=== PATIENT | male | born 1985 | race Caucasian/White ===

== ENCOUNTER 2020-09-07 08:23 | Emergency (ER) | payer OTHER ==
[2020-09-07 08:59] VITALS: BP 148/93; PULSE 109
--- NOTE | 2020-09-07 09:04 | CR ---
PROCEDURE INFORMATION: Exam: XR Chest, 1 View Exam date and time: 09/07/2020 8:54 AM Age: 34 years old Clinical indication: Chest pain; Type not specified TECHNIQUE: Imaging protocol: XR of the chest Views: 1 view. COMPARISON: No relevant prior studies available. FINDINGS: Lungs: The tip of the lung apices are partially excluded bilaterally. There is questionable minimal early bibasilar atelectasis versus pneumonia. However, no dense consolidation is seen. No kaleb pulmonary edema. Pleural space: Unremarkable. No pleural effusion. No pneumothorax. Heart/Mediastinum: Heart size is enlarged. Bones/joints: No acute osseous abnormality. IMPRESSION: 1. Questionable minimal early bibasilar atelectasis versus pneumonia, without dense consolidation or kaleb pulmonary edema. 2. Cardiomegaly.
[2020-09-07] MEDS ORDERED: GI Cocktail Oral Solution 30 ML PO ONE (09:10)
[2020-09-07 09:31] LABS: ANION GAP 12.9 mEq/L (7-13); CHLORIDE,CL 104 mmol/L (98-107); SODIUM,NA 141 mmol/L (136-145)
--- NOTE | 2020-09-07 09:43 | EDM.PDOC ---
ED HPI GENERAL MEDICAL PROBLEM - General Chief Complaint: Cardiovascular Problem Stated Complaint: CHEST PAINS Time Seen by Provider: 09/07/20 09:36 Source of Information: Reports: Patient, RN, RN Notes Reviewed History Limitations: Reports: No Limitations - History of Present Illness INITIAL COMMENTS - FREE TEXT/NARRATIVE: Patient presents to the ED via personal vehicle with complaints of chest pain. The patients reports a tightness to his left chest which started this past Thursday. He states this tightness has since progressed in severity and now radiates across his bilateral chest. He denies chest pain, palpitations, shortness of breath, fever, shaking chills, cough, sinus pain/pressure/drainage, or ear pain/pressure/drainage. He states he has been taking Motrin and Tylenol for this problem, but it has not alleviated his symptoms. He denies tobacco, alcohol, or recreational substance use. 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 - Related Data Allergies Allergy/AdvReac Type Severity Reaction Status Date / Time Penicillins Allergy Hives Verified 09/07/20 09:14 Home Meds: Home Meds . [No Known Home Meds] 10/17/16 [History] Past Medical History - Past Health History Medical/Surgical History: Denies Medical/Surgical History Social & Family History - Family History Family Medical History: Noncontributory - Tobacco Use Tobacco Use Status *Q: Never Tobacco User - Caffeine Use Caffeine Use: Reports: None - Recreational Drug Use Recreational Drug Use: No ED ROS GENERAL - Review of Systems Review Of Systems: Comprehensive ROS is negative, except as noted in HPI. ED EXAM, GENERAL - Physical Exam Exam: See Below Exam Limited By: No Limitations General Appearance: Alert, WD/WN, No Apparent Distress Eye Exam: Bilateral Eye: EOMI, Normal Inspection, PERRL Ears: Normal External Exam, Normal Canal, Hearing Grossly Normal, Normal TMs Ear Exam: Bilateral Ear: Auricle Normal, Canal Normal, TM normal Nose: Normal Inspection, Normal Mucosa, No Blood, Clear Rhinorrhea Throat/Mouth: Normal Lips, Normal Teeth, Normal Voice, No Airway Compromise. No: Normal Oropharynx (Dry mucous membranes) Head: Atraumatic, Normocephalic Neck: Normal Inspection, Supple, Non-Tender, Full Range of Motion Respiratory/Chest: Lungs Clear, Normal Breath Sounds, No Accessory Muscle Use, Chest Non-Tender. No: Crackles, Rales, Rhonchi, Wheezing, Stridor Cardiovascular: Normal Peripheral Pulses, Regular Rate, Rhythm, No Edema, No Gallop, No Murmur, No Rub Peripheral Pulses: 1+: Posterior Tibial (L), Posterior Tibial (R), 2+: Radial (L), Radial (R) GI/Abdominal: Normal Bowel Sounds, Soft, Non-Tender, No Distention, No Mass, Pelvis Stable Back Exam: Normal Inspection, Full Range of Motion Extremities: Normal Inspection, Normal Range of Motion, Non-Tender, No Pedal Edema, Normal Capillary Refill Neurological: Alert, Oriented, CN II-XII Intact, Normal Cognition, Normal Gait, No Motor/Sensory Deficits Psychiatric: Normal Affect, Normal Mood Skin Exam: Warm, Dry, Intact, Normal Color, No Rash. No: Ecchymosis, Erythema, Mottled, Pallor, Petechiae #1 Interpretation EKG Date: 09/07/20 Time: 08:43 Rate (Beats/Min): 99 [place]: Normal P-Wave: Present QRS: Normal ST-T: Normal QT: Normal Comparison: NA - No Prior EKG (NSR; No evidence of acute ischemia) Course - Vital Signs Last Recorded V/S: Last Vital Signs Temp 96.8 F L 09/07/20 08:50 Pulse 109 H 09/07/20 08:50 Resp 20 09/07/20 08:50 BP 148/93 H 09/07/20 08:50 Pulse Ox 98 09/07/20 08:50 - Orders/Labs/Meds Orders: Active Orders 24 hr Category Date Time Status CORONAVIRUS COVID-19 PCR [facility] Stat Lab 09/07/20 09:45 Received Labs: Laboratory Tests 09/07/20 09/07/20 09/07/20 Range/Units 09:03 09:03 09:03 WBC 6.4 (5.0-10.0) 10^3/uL RBC 5.38 (4.6-6.2) 10^6/uL Hgb 15.9 (14.0-18.0) g/dL Hct 46.0 (40.0-54.0) % MCV 85.5 (80-100) fL MCH 29.6 (27.0-34.0) pg MCHC 34.6 (33.0-35.0) g/dL Plt Count 205 (150-450) 10^3/uL Neut % (Auto) 61.1 (42.2-75.2) % Lymph % (Auto) 27.6 (20.5-50.1) % [place] % (Auto) 8.8 H (2-8) % Eos % (Auto) 2.0 (1.0-3.0) % Baso % (Auto) 0.5 (0.0-1.0) % D-Dimer, Quantitative < 100 (0-400) ng/mL Sodium 141 (136-145) mmol/L Potassium 3.9 (3.5-5.1) mmol/L Chloride 104 (98-107) mmol/L Carbon Dioxide 28 (21-32) mmol/L Anion Gap 12.9 (7-13) mEq/L BUN 17 (7-18) mg/dL Creatinine 0.89 (0.70-1.30) mg/dL Est Cr Clr Drug Dosing 138.54 mL/min Estimated GFR (MDRD) > 60 BUN/Creatinine Ratio 19.1 (No establ ref range) Glucose 141 H (74-99) mg/dL Calcium 8.9 (8.5-10.1) mg/dL Total Bilirubin 0.4 (0.2-1.0) mg/dL AST 27 (15-37) U/L ALT 55 (16-63) U/L Alkaline Phosphatase 70 (46-116) U/L Troponin I < 0.017 (0.000-0.056) ng/mL Total Protein 7.5 (6.4-8.2) g/dL Albumin 3.9 (3.4-5.0) g/dL Globulin 3.6 Albumin/Globulin Ratio 1.1 Amylase (25-115) U/L Lipase (73-393) U/L 09/07/20 Range/Units 09:03 WBC (5.0-10.0) 10^3/uL RBC (4.6-6.2) 10^6/uL Hgb (14.0-18.0) g/dL Hct (40.0-54.0) % MCV (80-100) fL MCH (27.0-34.0) pg MCHC (33.0-35.0) g/dL Plt Count (150-450) 10^3/uL Neut % (Auto) (42.2-75.2) % Lymph % (Auto) (20.5-50.1) % [place] % (Auto) (2-8) % Eos % (Auto) (1.0-3.0) % Baso % (Auto) (0.0-1.0) % D-Dimer, Quantitative (0-400) ng/mL Sodium (136-145) mmol/L Potassium (3.5-5.1) mmol/L Chloride (98-107) mmol/L Carbon Dioxide (21-32) mmol/L Anion Gap (7-13) mEq/L BUN (7-18) mg/dL Creatinine (0.70-1.30) mg/dL Est Cr Clr Drug Dosing mL/min Estimated GFR (MDRD) BUN/Creatinine Ratio (No establ ref range) Glucose (74-99) mg/dL Calcium (8.5-10.1) mg/dL Total Bilirubin (0.2-1.0) mg/dL AST (15-37) U/L ALT (16-63) U/L Alkaline Phosphatase (46-116) U/L Troponin I (0.000-0.056) ng/mL Total Protein (6.4-8.2) g/dL Albumin (3.4-5.0) g/dL Globulin Albumin/Globulin Ratio Amylase 34 (25-115) U/L Lipase 63 L (73-393) U/L Meds: Medications Discontinued Medications Generic Name Dose Route Start Last Admin Trade Name Freq PRN Reason Stop Dose Admin Al Hydroxide/Mg Hydroxide 30 ml 09/07/20 09:10 09/07/20 09:14 Gi Cocktail PO 09/07/20 09:11 30 ml ONETIME ONE Administration - Radiology Interpretation Free Text/Narrative:: [facility] [place] [facility] Final Radiology Report Call: [phone] assistance Online chat: [email or web address] Name: SANDHYA LITTLE Age: 34Years M Date: 09/07/2020 SSN: -- : [id number] Study: CR CHEST 1V FRONTAL Requesting Physician: Wanda Guardado Images: 1 Addl Studies: Provided Clinical History: chest pain Contrast: Contrast Medium: Contrast Amount: Contrast Method: CONFIDENTIALITY STATEMENT This report is intended only for use by the referring physician, and only in accordance with law. If you received this in error, call [phone]. Page 1 of 1 PROCEDURE INFORMATION: Exam: XR Chest, 1 View Exam date and time: 09/07/2020 8:54 AM Age: 34 years old Clinical indication: Chest pain; Type not specified TECHNIQUE: Imaging protocol: XR of the chest Views: 1 view. COMPARISON: No relevant prior studies available. FINDINGS: Lungs: The tip of the lung apices are partially excluded bilaterally. There is questionable minimal early bibasilar atelectasis versus pneumonia. However, no dense consolidation is seen. No kaleb pulmonary edema. Pleural space: Unremarkable. No pleural effusion. No pneumothorax. Heart/Mediastinum: Heart size is enlarged. Bones/joints: No acute osseous abnormality. IMPRESSION: 1. Questionable minimal early bibasilar atelectasis versus pneumonia, without dense consolidation or kaleb pulmonary edema. 2. Cardiomegaly. Thank you for allowing us to participate in the care of your patient. Dictated and Authenticated by: Roxi Clark MD 09/07/2020 9:03 AM Central Time ([place] & [place]) - Re-Assessments/Exams Free Text/Narrative Re-Assessment/Exam: 09/07/20 09:49 Patient verbalizes no improvement of chest tightness following GI cocktail. Cardiac workup negative for acute ischemic processes. D-dimer negative. Will swab patient for COVID with the State Test and instruct him to follow quarantine measures until results are known. Departure - Departure Time of Disposition: 10:07 Disposition: Home, Self-Care 01 Condition: Good Clinical Impression: Feeling of chest tightness Instructions: Nonspecific Chest Pain, Adult, [id number] Forms: ED Department Discharge Additional Instructions: Cardiac workup today was negative. Follow instructions of the [facility] regarding your COVID screen. Return to ED with any worsening of symptoms, chest pain, or shortness of breath. Sepsis Event Note (ED) - Evaluation Sepsis Screening Result: No Definite Risk - Focused Exam Vital Signs: Vital Signs Temp Pulse Resp BP Pulse Ox 09/07/20 08:50 96.8 F L 109 H 20 148/93 H 98 - My Orders Last 24 Hours: My Active Orders 09/07/20 09:45 CORONAVIRUS COVID-19 PCR [facility] Stat - Assessment/Plan Last 24 Hours: My Active Orders 09/07/20 09:45 CORONAVIRUS COVID-19 PCR [facility] Stat
== END 2020-09-07 10:29 | disposition home or self-care (01) ==
LOC: DL.ED 08:23
DX: R07.89 Other chest pain (principal); Z88.0 Allergy status to penicillin
CPT/HCPCS: 36415; 71045; 80053; 82150; 83690; 84484; 85025; 85379; 87635; 93005; 99285; A9270; U0002

== ENCOUNTER 2022-02-08 19:23 | Emergency (ER) | payer OTHER ==
[2022-02-08] MEDS ORDERED: Sodium Chloride 0.9% 10 ML Syringe FLUSH PRN (19:47)
[2022-02-08] MEDS ORDERED: Sodium Chloride 0.9% 1,000 ML IV ONE ×2 (19:50→20:45)
[2022-02-08 20:34] LABS: ANION GAP 16.3 mEq/L (7-13); CHLORIDE,CL 101 mmol/L (98-107); SODIUM,NA 141 mmol/L (136-145)
[2022-02-08] MEDS ORDERED: Potassium Chloride 10 MEQ Tab.ER PO ONE (21:43)
[2022-02-08] MEDS ORDERED: Loperamide 2 MG Cap PO ONE (21:43)
[2022-02-08 22:38] VITALS: BP 154/85; PULSE 96
== END 2022-02-08 21:36 | disposition home or self-care (01) ==
LOC: DL.ED 19:23
DX: R19.7 Diarrhea, unspecified (principal); Z88.0 Allergy status to penicillin
CPT/HCPCS: 36415; 80053; 81001; 83605; 83735; 85025; 86140; 87045; 87046; 87328; 87329; 87493; 87899; 99282; 99284; A9270; J3490; J7030; 87177; 87206; 87207